=== PATIENT | female | born 1980 | race Caucasian/White ===

== ENCOUNTER 2018-02-11 16:00 | Emergency (ER) | payer SELFPAY ==
[~2018-02-11] VITALS: Ht 160 cm; Wt 79.1 kg
[~2018-02-11 16:00] MED LIST: AMOXICILLIN 50500 MG PO; BACTRIM DS 8001 TAB PO; BENADRYL25 M2 PO; CEPHALEXIN500 M1 PO; LORTAB 5/500 501 TAB PO; MORPHINE 1515 MG/TAB PO; NO HOME MEDICATIONS; NORCO 325 MG-51 TAB PO; PRILOSEC 20MG20 MG PO
[2018-02-11 16:02] VITALS: BP 132/58; TEMP 98.9
[2018-02-11 16:42] LABS: COLLECTION METHOD CLEAN CATCH
[2018-02-11 16:43] LABS: BASO % 0.3 % (0.0-2.0); EOS # 0.2 (0.0-0.7); EOS % 2.7 % (0-4.0); GRAN % 69.5 % (42.2-75.2); HEMATOCRIT 42.7 % (37.0-47.0); LYMPH # 1.8 (1.2-3.4); LYMPH % 21.3 % (20.0-51.0); MEAN CELL VOLUME 88 fl (80.0-100.0); MEAN CORPUSCULAR HEMOGLOBIN 29 pg (27.0-31.0); MEAN CORPUSCULAR HGB CONC 33 g/dl (33.0-37.0); MEAN PLATELET VOLUME 10.2 fl (7.4-10.4); MONO # 0.5 (0.1-0.6); MONO % 5.9 % (1.7-9.3); PLATELET COUNT 232 K/mm3 (130-400); RED BLOOD COUNT 4.86 M/mm3 (4.10-5.30); REDCELL DISTRIBUTION WIDTH-CV 12.6 % (11.5-14.5)
[2018-02-11 16:49] LABS: MUCOUS Present /lpf; PH 7 (5-8); SQUAMOUS EPITHELIAL 0-2 /hpf; URINE APPEARANCE Clear; URINE BACTERIA None Seen /hpf; URINE BILIRUBIN Negative (NEGATIVE); URINE BLOOD Negative (NEGATIVE); URINE COLOR Yellow; URINE GLUCOSE Negative (NEGATIVE); URINE KETONE Negative (NEGATIVE); URINE LEUKOCYTE ESTERASE Negative (NEGATIVE); URINE NITRATE Negative (NEGATIVE); URINE PROTEIN(semi-quant) Negative (NEGATIVE); URINE RBC None Seen /hpf; URINE UROBILINOGEN Negative (NEGATIVE)
[2018-02-11 16:54] LABS: ALBUMIN 3.9 gm/dL (3.5-5.0); BILIRUBIN,TOTAL 0.4 mg/dL (0.0-1.0); C-REACTIVE PROTEIN 0.6 mg/dL (0.0-0.9); CALCIUM 9.2 mg/dL (8.4-10.2); CREATININE, serum 0.71 mg/dL (0.52-1.25); POTASSIUM 3.8 mmol/L (3.4-5.0); TOTAL PROTEIN 7.3 gm/dL (6.4-8.2)
[2018-02-11] MEDS ORDERED: FLAGYL500 MG PO (18:55)
[2018-02-11 19:08] VITALS: PULSE 73
== END 2018-02-11 19:09 | disposition home or self-care (01) ==
LOC: COL.ER 16:00
PROVIDERS: Physician Assistant
DX: N76.0 Acute vaginitis (principal); R10.2 Pelvic and perineal pain; M54.12 Radiculopathy, cervical region; K21.9 Gastro-esophageal reflux disease without esophagitis; F17.210 Nicotine dependence, cigarettes, uncomplicated; Z85.41 Personal history of malignant neoplasm of cervix uteri
CPT/HCPCS: Q9967

== ENCOUNTER 2018-06-01 21:09 | Emergency (ER) | payer SELFPAY ==
[~2018-06-01] VITALS: Ht 160 cm; Wt 78.2 kg
[~2018-06-01 21:09] MED LIST changes: +FLAGYL500 MG PO
[2018-06-01 21:14] VITALS: BP 112/58; TEMP 98.3
[2018-06-01] MEDS ORDERED: DOXYCYCLINE 10100 MG PO (21:37)
[2018-06-01 21:48] VITALS: PULSE 82
== END 2018-06-01 21:48 | disposition home or self-care (01) ==
LOC: COL.ER 21:09
DX: L08.9 Local infection of the skin and subcutaneous tissue, unspecified (principal); F17.210 Nicotine dependence, cigarettes, uncomplicated

== ENCOUNTER 2019-03-03 05:33 | Emergency (ER) | payer SELFPAY ==
[~2019-03-03] VITALS: Ht 160 cm; Wt 86.8 kg
[~2019-03-03 05:33] MED LIST changes: +DOXYCYCLINE 10100 MG PO
[2019-03-03 05:35] VITALS: BP 125/76; PULSE 84; TEMP 98.2
== END 2019-03-03 06:37 | disposition home or self-care (01) ==
LOC: COL.ER 05:33
DX: M79.644 Pain in right finger(s) (principal); F17.210 Nicotine dependence, cigarettes, uncomplicated

== ENCOUNTER 2021-03-12 01:30 | Emergency (ER) | payer SELFPAY ==
[~2021-03-12] VITALS: Ht 160 cm; Wt 93.2 kg
[2021-03-12 02:19] LABS: BASO % 0.4 % (0.0-2.0); EOS # 0.2 (0.0-0.7); EOS % 1.9 % (0-4.0); GRAN # 6.6 (1.4-6.5); GRAN % 63.8 % (42.2-75.2); HEMATOCRIT 44.5 % (37.0-47.0); HEMOGLOBIN 13.9 g/dl (12.5-16.0); LYMPH # 2.8 (1.2-3.4); LYMPH % 27.3 % (20.0-51.0); MEAN CELL VOLUME 88 fl (80.0-100.0); MEAN CORPUSCULAR HEMOGLOBIN 27 pg (27.0-31.0); MEAN CORPUSCULAR HGB CONC 31 g/dl (33.0-37.0); MEAN PLATELET VOLUME 10.3 fl (7.4-10.4); MONO # 0.6 (0.1-0.6); MONO % 5.8 % (1.7-9.3); PLATELET COUNT 314 K/mm3 (130-400); RED BLOOD COUNT 5.08 M/mm3 (4.10-5.30); REDCELL DISTRIBUTION WIDTH-CV 13.7 % (11.5-14.5)
[2021-03-12 02:29] LABS: ALBUMIN 4.5 gm/dL (3.5-5.0); BILIRUBIN,TOTAL 0.2 mg/dL (0.0-1.0); CALCIUM 9.6 mg/dL (8.4-10.2); CREATININE, serum 0.82 (0.52-1.25); POTASSIUM 4.4 mmol/L (3.4-5.0); TOTAL PROTEIN 8.3 gm/dL (6.4-8.2)
[2021-03-12 03:27] LABS: COLLECTION METHOD CLEAN CATCH
[2021-03-12 03:33] LABS: MUCOUS Present /lpf; PH 6 (5-8); SQUAMOUS EPITHELIAL 0-2 /hpf; URINE APPEARANCE Clear; URINE BACTERIA None Seen /hpf; URINE BILIRUBIN Negative (NEGATIVE); URINE BLOOD Negative (NEGATIVE); URINE COLOR Yellow; URINE GLUCOSE Negative (NEGATIVE); URINE KETONE Negative (NEGATIVE); URINE LEUKOCYTE ESTERASE Trace (NEGATIVE); URINE NITRATE Negative (NEGATIVE); URINE PROTEIN(semi-quant) Negative (NEGATIVE)
[2021-03-12] MEDS ORDERED: FLEXERIL 1010 MG/TAB PO (03:45)
[2021-03-12 03:57] VITALS: BP 131/85; PULSE 89; TEMP 98.1
== END 2021-03-12 03:57 | disposition home or self-care (01) ==
LOC: COL.ER 01:30
PROVIDERS: Student in an Organized Health Care Education/Training Program
DX: R07.89 Other chest pain (principal); F17.210 Nicotine dependence, cigarettes, uncomplicated
CPT/HCPCS: J2270; J2405; J7030

== ENCOUNTER 2021-05-27 17:27 | Emergency (ER) | payer SELFPAY ==
[~2021-05-27] VITALS: Ht 160 cm; Wt 94.5 kg
[~2021-05-27 17:27] MED LIST changes: +FLEXERIL 1010 MG/TAB PO
[2021-05-27 17:37] VITALS: TEMP 98.1
[2021-05-27 18:02] LABS: BASO % 0.3 % (0.0-2.0); EOS # 0.1 K/mm3 (0.0-0.7); EOS % 1.2 % (0-4.0); GRAN # 7.2 K/mm3 (1.4-6.5); HEMATOCRIT 44.5 % (37.0-47.0); HEMOGLOBIN 14.5 g/dl (12.5-16.0); LYMPH % 20.3 % (20.0-51.0); MEAN CELL VOLUME 86 fl (80.0-100.0); MEAN CORPUSCULAR HEMOGLOBIN 28 pg (27.0-31.0); MEAN CORPUSCULAR HGB CONC 33 g/dl (33.0-37.0); MONO # 0.4 K/mm3 (0.1-0.6); MONO % 3.7 % (1.7-9.3); PLATELET COUNT 281 K/mm3 (130-400); RED BLOOD COUNT 5.18 M/mm3 (4.10-5.30); REDCELL DISTRIBUTION WIDTH-CV 12.9 % (11.5-14.5)
[2021-05-27 18:23] LABS: BILIRUBIN,TOTAL 0.5 mg/dL (0.2-1.2); C-REACTIVE PROTEIN 1.2 mg/dL (0.00-0.50); CALCIUM 9.7 mg/dL (8.4-10.2); CREATININE, serum 0.79 mg/dL (0.57-1.11); TOTAL PROTEIN 7.9 gm/dL (6.2-8.1)
[2021-05-27 19:41] LABS: COLLECTION METHOD CLEAN CATCH
[2021-05-27 19:49] LABS: PH 6 (5-8); SQUAMOUS EPITHELIAL 0-2 /hpf; URINE APPEARANCE Clear; URINE BACTERIA Rare /hpf; URINE BILIRUBIN Negative (NEGATIVE); URINE BLOOD Negative (NEGATIVE); URINE COLOR Straw; URINE GLUCOSE Negative (NEGATIVE); URINE KETONE Negative (NEGATIVE); URINE LEUKOCYTE ESTERASE Trace (NEGATIVE); URINE NITRATE Negative (NEGATIVE); URINE PROTEIN(semi-quant) Negative (NEGATIVE); URINE RBC 0-2 /hpf; URINE UROBILINOGEN Negative (NEGATIVE)
[2021-05-27] MEDS ORDERED: PREDNISONE20 MG PO (20:23)
[2021-05-27 20:34] VITALS: BP 106/68; PULSE 68
== END 2021-05-27 20:34 | disposition home or self-care (01) ==
LOC: COL.ER 17:27
PROVIDERS: Nurse Practitioner
DX: R10.13 Epigastric pain (principal); L50.9 Urticaria, unspecified; F17.210 Nicotine dependence, cigarettes, uncomplicated; Z32.02 Encounter for pregnancy test, result negative
CPT/HCPCS: J1200; J3010; J7030; J7512

== ENCOUNTER 2023-05-06 22:19 | Inpatient (IN) | payer SELFPAY ==
[~2023-05-06] VITALS: Ht 165.1 cm; Wt 56.7 kg
[~2023-05-06 22:19] MED LIST changes: +DAZIDOX10 MG PO; +NAPROSYN500 MG PO; +PERCOCET 325 MG1 TA2 PO; +PREDNISONE20 MG PO; +REGLAN 10MG10 MG/TAB PO; +ROXICODONE 55 MG/TAB PO; +ZOFRAN 4MG T4 MG/TAB PO; +ZOFRAN ODT4 MG PO
[2023-05-06 23:05] LABS: HEMATOCRIT 38.2 % (37.0-47.0); HEMOGLOBIN 11.2 g/dl (12.5-16.0); MEAN CELL VOLUME 84 fl (80.0-100.0); MEAN CORPUSCULAR HEMOGLOBIN 25 pg (27-31); MEAN CORPUSCULAR HGB CONC 29 g/dl (33.0-37.0); MEAN PLATELET VOLUME 10.1 fl (7.4-10.4); PLATELET COUNT 221 K/mm3 (130-400); RED BLOOD COUNT 4.53 M/mm3 (4.10-5.30); REDCELL DISTRIBUTION WIDTH-CV 23.1 % (11.5-14.5)
[2023-05-06 23:18] LABS: BILIRUBIN,TOTAL 2.3 mg/dL (0.2-1.2); CREATININE, serum 0.83 mg/dL (0.57-1.11); POTASSIUM 4.7 mmol/L (3.5-4.5); TOTAL PROTEIN 7.4 gm/dL (6.2-8.1)
[2023-05-06 23:20] LABS: CALCIUM 14.3 mg/dL (8.4-10.2)
[2023-05-06 23:24] LABS: TROPONIN-I 0.019 ng/mL (0.00-0.033)
[2023-05-06 23:53] LABS: ANISOCYTOSIS 4+; BAND 8 % (0-10); LYMPHOCYTE 1 % (20.0-51.0); NEUTROPHILS 87 % (42.0-75.2); PLATELET ESTIMATE NORMAL (NORMAL)
[2023-05-06 23:54] LABS: HYPOCHROMIA 1+
[2023-05-07] VITALS (636 sets, daily range): BP systolic 132–136; BP diastolic 88–100; PULSE 137–142; TEMP 98.1–99.4; O2SAT 87–100
[2023-05-07 01:50] LABS: INR 1.9 (0.8-3.0); PROTHROMBIN TIME 20.8 SECONDS (9.7-12.8)
--- NOTE | 2023-05-07 02:43 | NUR ---
PATIENT ARRIVES FROM ER/ RECIEVED NURSES REPORT FROM NATALIE VAZQUEZ
--- NOTE | 2023-05-07 02:53 | NUR ---
Vancomycin Initial Dosing Pharmacy Note Ordering provider: Lukas Alfaro MD Indication/duration: Sepsis x 7 days Relevant comorbidities: Recent hip surgery, Stage 4 metastatic cervical CA LABS: WBC = 20.7, SCr = 0.83 Recommendation: Will draw troughs and follow levels. Loading dose: 1.5 grams Maintenance dose: 1.25 grams every 12 hours Trough goal: 15-20 ug/mL
[2023-05-07 03:01] LABS: COLLECTION METHOD CLEAN CATCH
[2023-05-07 03:10] LABS: URINE APPEARANCE Turbid (CLEAR/HAZY); URINE BLOOD 3+ (NEGATIVE); URINE COLOR Yellow (YELLOW); URINE GLUCOSE Negative (NEGATIVE); URINE KETONE 1+ (NEGATIVE); URINE NITRATE Negative (NEGATIVE); URINE PROTEIN(semi-quant) 3+ (NEGATIVE)
[2023-05-07 03:15] LABS: URINE BACTERIA Occasional /hpf (NONE SEEN)
[2023-05-07 05:27] LABS: MEAN CELL VOLUME 81 fl (80.0-100.0); MEAN CORPUSCULAR HGB CONC 31 g/dl (33.0-37.0); MEAN PLATELET VOLUME 9.8 fl (7.4-10.4); PLATELET COUNT 176 K/mm3 (130-400); RED BLOOD COUNT 3.96 M/mm3 (4.10-5.30); REDCELL DISTRIBUTION WIDTH-CV 22.5 % (11.5-14.5)
[2023-05-07 05:30] LABS: HEMATOCRIT 32.2 % (37.0-47.0); HEMOGLOBIN 9.9 g/dl (12.5-16.0); MEAN CORPUSCULAR HEMOGLOBIN 25 pg (27-31)
[2023-05-07 05:45] LABS: ALBUMIN 1.8 gm/dL (3.5-5.0); BILIRUBIN,TOTAL 1.8 mg/dL (0.2-1.2); CREATININE, serum 0.71 mg/dL (0.57-1.11); MAGNESIUM 1.9 mg/dL (1.6-2.6); PHOSPHOROUS 2.9 mg/dL (2.3-4.7); POTASSIUM 4.7 mmol/L (3.5-4.5); TOTAL PROTEIN 6.4 gm/dL (6.2-8.1)
[2023-05-07 06:59] LABS: BAND 10 % (0-10); LYMPHOCYTE 5 % (20.0-51.0); NEUTROPHILS 80 % (42.0-75.2); PLATELET ESTIMATE NORMAL (NORMAL)
--- NOTE | 2023-05-07 09:46 | NUR ---
AM Success Coach rounds: Success Coach visit attempted; RN was with Patient.
--- NOTE | 2023-05-07 14:17 | NUR ---
PM Engravings Polisher rounds: Engravings Polisher visited with Patient's family in the ICU waiting area. Engravings Polisher provided supportive listening.
--- NOTE | 2023-05-07 16:13 | NUR ---
SW received call from nurse questioning if she was aware of who pt's DPOA was to update resessatation status. BLANE explained charts pt is single and NOK is mother and person to notify is daughter. SW did not complete intake due to status of pt. Dr. Gonzalez confirmed pt has potential to pass away today and wants to speak to the family. SW spoke with eldest daughter, Dorothy Vega [phone] also identified as person to notify who explained mother is commonly law and her grandmother has been making majority of the decisions. Dorothy reported having 3 other siblings all being adults. She reported mother does not have DPOA. BLANE met with pts children, mother, and other family, other prn sw and nurse to inform them of status being terminal. BLANE informed family they could reach out if needed. BLANE consulted with Rosa. Family asked if they could stay with pt outside of visiting hours. BLANE consulted with marbella guajardo; family is okay to stay.
--- NOTE | 2023-05-07 17:01 | NUR ---
4547 - CALLED REPORT TO MEDICAL NURSE, TOMY HE AT THIS TIME.
--- NOTE | 2023-05-07 17:21 | NUR ---
1716 - PT TRANSPORTED TO MEDICAL FROM ICU AT THIS TIME VIA BED WITH PCT'S. PT LEFT IN STABLE CONDITION WITH NO COMPLAINTS. FAMILY IN ROOM AND WITH PT DURING TRANSPORT.
--- NOTE | 2023-05-07 18:22 | NUR ---
Patient arrived to floor from ICU around 1700 with family at bedside. Patient is drowsy, but is responsive to voice and name. Pallor noted to skin. Respirations within normal limits at this time, breathing unlabored. Patient tolerating sips of water. PRN morphine administered for noted discomfort after transfer. Patient will have two family members staying overnight. Call light within reach of patient and family.
--- NOTE | 2023-05-07 18:53 | NUR ---
Patient's family and boyfriend at bedside. Family had questions regarding comfort care and lack of IV fluids. Education provided on what comfort care entails as well as medications ordered to manage pain/restlessness. Family expressed concern and admitted to not fully understanding that IV fluids would be discontinued. Family worried due to patient not eating. Education provided on decrease in appetite in patient's current condition. Family verbalized understanding, but stated they would like to talk to doctor about other possibilities of care.
--- NOTE | 2023-05-08 00:06 | NUR ---
Vegetable Tester banking consultant: Vegetable Tester called to pray for Patient and Family. Patient is on comfort care. Vegetable Tester prayed, read [place] from the Book of Common Prayer, and provided rosaries to Family members who desired a rosary. Vegetable Tester offered to call a Welfare Interviewer, Family stated that Vegetable Tester was sufficient. Vegetable Tester will remain available to provide spiritual care as desired for this Family.
--- NOTE | 2023-05-08 06:20 | NUR ---
Called [facility] and spoke with Macie. Patient is not a candidate for donation at this time. [facility] Referral #[id number]
--- NOTE | 2023-05-08 07:35 | NUR ---
SHIFT CHANGE REPORT RECEIVED FROM TAYLOR HUITRON. THE PATIENT APPEARED TO BE HAVING SOME AIR HUNGER, PAIN AND ANXIETY. THROUGHOUT THE EVENING AND NIGHT MORPHINE, ATIVAN AND HALDOL WERE GIVEN PER ORDERS. THE PROVIDER TUMBLER OPERATOR WAS CONTACTED AND UPDATED REGARDING THE PATIENTS RESPONSE TO THE ORDERED MEDICATIONS FOR COMFORT CARE. THE ORDERS WERE ADJUSTED A FEW TIMES TO MEET THE NEEDS OF THE PATIENT. FAMILY WAS AT BEDSIDE ALL NIGHT. EDUCATION WAS PROVIDED TO THE FAMILY REGARDING THE DYING PROCESS AND FURTHER EDUCATION CONTINUED THE NIGHT MOVED FORWARD. IT WAS DIFFICULT TRYING TO GET CONTROL OF THE PATIENTS SYMPTOMS THE PATIENT HAD BEEN TAKING NARCOTICS AT HOME. THE FAMILY WAS VERY UNDERSTANDING AND APPRECIATIVE OF THE CARE. THE PATIENT AT 06:08 AM AND THE RURAL SOCIOLOGIST WAS NOTIFIED AT 06:[address] MOLINA WAS NOTIFIED AT 0630 AM. REPORT WAS GIVEN BACK TO TAYLOR HUITRON. FAMILY STILL AT BEDSIDE.
--- NOTE | 2023-05-08 09:07 | NUR ---
FAMILY STILL AT BEDSIDE WITH PATIENT. THEY HAVE CHOSEN [facility] AND STATED THEY ARE READY FOR THEM TO COME PICK PATIENT UP. HOME CONTACTED, STILL WAITING TO HEAR FROM PANCHO ON PICK-UP TIME.
--- NOTE | 2023-05-08 10:04 | NUR ---
Postmortem care provided to patient. IVs removed from right and left AC, ly catheter removed. Nephrostomy bag tubing removed, nephrostomy left in place. Family gathered patient's belongings. [facility] home picked patient up around 1000.
--- NOTE | 2023-05-08 11:13 | NUR ---
SW received updates with current status on home arrangement from House Nurse and inquired about any additonal support needed for SW team. SW met with family to provide supportive services and local grief support/counseling resources. SW encouraged the family to reach out if they needed additional support.
== END 2023-05-08 10:00 | disposition expired | DRG 871 ==
LOC: COL.ER 22:19 → ICU 05-07 01:10 → MEDICAL 05-07 17:40
PROVIDERS: Nurse Practitioner Primary Care; Physician Assistant; ADMIT Internal Medicine
DX: A41.9 Sepsis, unspecified organism (principal); G92.8 Other toxic encephalopathy; R18.8 Other ascites; E87.1 Hypo-osmolality and hyponatremia; C78.7 Secondary malignant neoplasm of liver and intrahepatic bile duct; C79.51 Secondary malignant neoplasm of bone; N13.9 Obstructive and reflux uropathy, unspecified; E83.52 Hypercalcemia; C53.9 Malignant neoplasm of cervix uteri, unspecified; Z11.51 Encounter for screening for human papillomavirus (HPV)
CPT/HCPCS: J0630; J0692; J0696; J1630; J1836; J2060; J2270; J3010; J3370; J7030; J7050; J7120; Q9967